=== PATIENT | female | born 1990 | race Caucasian/White ===

== ENCOUNTER 2017-12-07 11:38 | Emergency (ER) | payer OTHER ==
[2017-12-07] MEDS ORDERED: LIDOCAINE PATCH 5% TOP PRN (13:26)
--- NOTE | 2017-12-07 13:49 | ED Physician Documentation ---
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 hurts L > R worse with moving no numbness or weakness no fever not preg is breast feeding Review of Systems Constitutional: denies: Fever, Chills Cardiac: denies: Chest pain / pressure GI: denies: Abdominal Pain : denies: Incontinent, Now EGA Musculoskeletal: reports: Back pain Neurologic: denies: Focal weakness, Numbness Immunocompromised: denies: Immunocompromised PD PAST MEDICAL HISTORY - Past Medical History Past Medical History: No - Past Surgical History Past Surgical History: Yes Ortho: Other - Present Medications Home Medications: Ambulatory Orders Medication Instructions Recorded Confirmed Bcp 12/07/17 Ibuprofen [Motrin] 400 mg PO Q6H PRN #30 tablet 12/07/17 Lidocaine Patch 5% [Lidoderm Patch] 1 each TOP DAILY PRN #10 patch 12/07/17 - Allergies Allergies/Adverse Reactions: Allergies Allergy/AdvReac Type Severity Reaction Status Date / Time No Known Drug Allergies Allergy Verified 12/07/17 11:52 - Social History Does the pt smoke?: No Smoking Status: Never smoker Does the pt have substance abuse?: No PD ED PE NORMAL - Vitals Vital signs reviewed: Yes - HEENT HEENT: Atraumatic - Neck Neck: Supple, no meningeal sign, Other (left low muscular tTP) - Cardiac Cardiac: RRR - Respiratory Respiratory: No respiratory distress, Clear bilaterally - Abdomen Abdomen: Soft, Non tender - Back Back: No spinal TTP, Other (thoracic soft tissue TTP and some limited ROM, no rendess warmth swelling) - Derm Derm: Normal color - Extremities Extremities: Normal ROM s pain - Neuro Neuro: Alert and oriented X 3, Other (hip flex knee ext foot dorsi plantar and great to ext 5/5, patellar DTR 2+/4 maxwell, no clonus, nl sens and motor to arms as well) Eye Opening: Spontaneous Motor: Obeys Commands Verbal: Oriented GCS Score: 15 Results - Vitals Vitals: Vital Signs - 24 hr 12/07/17 11:51 Temperature 36.9 C Heart Rate 79 Respiratory 18 Rate Blood Pressure 147/88 H O2 Saturation 99 Oxygen O2 Source Room air PD MEDICAL DECISION MAKING - Sepsis Event Vital Signs: Vital Signs - 24 hr 12/07/17 11:51 Temperature 36.9 C Heart Rate 79 Respiratory 18 Rate Blood Pressure 147/88 H O2 Saturation 99 Oxygen O2 Source Room air Departure - Departure Disposition: 01 Home, Self Care Clinical Impression: Acute thoracic myofascial strain Qualifiers: Encounter type: initial encounter Qualified Code(s): S29.019A - Strain of muscle and tendon of unspecified wall of thorax, initial encounter Condition: Good Instructions: ED Sprain Thoracic Spine Follow-Up: MAURICE Bartonramirez Velez [Provider Group] Prescriptions: Ibuprofen [Motrin] 400 mg PO Q6H PRN #30 tablet PRN Reason: Pain Lidocaine Patch 5% [Lidoderm Patch] 1 each TOP DAILY PRN #10 patch PRN Reason: Pain Forms: Activity restrictions
[2017-12-07] MEDS: IBUPROFEN 400 MG TABLET PO STA ×2 (14:06→14:10)
[2017-12-07 14:59] VITALS: BP 133/79
== END 2017-12-07 14:10 | disposition home or self-care (01) ==
LOC: ED 11:38
DX: S29.019A Strain of muscle and tendon of unspecified wall of thorax, initial encounter (principal); X50.0XXA Overexertion from strenuous movement or load, initial encounter; Y93.F9 Activity, other caregiving; Y92.129 Unspecified place in nursing home as the place of occurrence of the external cause; Y99.0 Civilian activity done for income or pay
CPT/HCPCS: 99283; A9270

== ENCOUNTER 2018-03-12 19:33 | Observation (INO) | payer OTHER ==
[2018-03-12] MEDS ORDERED: oxyCODONE 5 MG TABLET PO STA (19:59)
--- NOTE | 2018-03-12 20:30 | ED Physician Documentation ---
PD HPI FEMALE - Stated complaint Stated Complaint: 6 WKS/CRAMPS/NAUS - Chief complaint Chief Complaint: Abd Pain - History obtained from History obtained from: Patient, Family - History of Present Illness Timing - onset: Today Timing - duration: Days Timing - details: Gradual onset Pain level max: 7 Pain level max: 7 Associated symptoms: Other (lower abd pain) Contributing factors: OB-HEAD OF PRECISION TARGETING History: G (2), P (1) - Additional information Additional information: states spotting over the past few days, today severe lower abd pain Review of Systems Ten Systems: 10 systems reviewed and negative Constitutional: denies: Fever, Chills Ears: denies: Ear pain Nose: denies: Rhinorrhea / runny nose, Congestion Throat: denies: Sore throat Cardiac: denies: Chest pain / pressure Respiratory: denies: Cough GI: denies: Nausea, Vomiting, Diarrhea Skin: denies: Rash Musculoskeletal: denies: Neck pain, Back pain Neurologic: denies: Headache PD PAST MEDICAL HISTORY - Past Medical History Past Medical History: No - Past Surgical History Past Surgical History: Yes Ortho: Other - Present Medications Home Medications: Ambulatory Orders Medication Instructions Recorded Confirmed Bcp 12/07/17 Ibuprofen [Motrin] 400 mg PO Q6H PRN #30 tablet 12/07/17 Lidocaine Patch 5% [Lidoderm Patch] 1 each TOP DAILY PRN #10 patch 12/07/17 - Allergies Allergies/Adverse Reactions: Allergies Allergy/AdvReac Type Severity Reaction Status Date / Time No Known Drug Allergies Allergy Verified 03/12/18 19:43 - Living Situation Living Situation: reports: With family Living Arrangement: reports: At home - Social History Does the pt smoke?: No Smoking Status: Never smoker Does the pt have substance abuse?: No PD ED PE NORMAL - Vitals Vital signs reviewed: Yes - General General: Alert and oriented X 3, Other (appears in pain, hunched over coming into the ER.) - HEENT HEENT: Moist mucous membranes - Neck Neck: Supple, no meningeal sign - Cardiac Cardiac: RRR - Respiratory Respiratory: No respiratory distress, Clear bilaterally - Abdomen Abdomen: Soft, Other (TTP suprapubic, + rebound and guarding. ) - Back Back: No CVA TTP, No spinal TTP - Derm Derm: Warm and dry - Extremities Extremities: No edema - Neuro Neuro: Alert and oriented X 3 Results - Vitals Vitals: Vital Signs - 24 hr 03/12/18 19:41 Temperature 36.5 C Heart Rate 87 Respiratory 18 Rate Blood Pressure 138/92 H O2 Saturation 100 Oxygen O2 Source Room air - Rads (name of study) OB US Radiology: Prelim report reviewed, EMP read contemporaneously, See rad report (No intrauterine gestational sac seen. Recommend continued clinical and laboratory monitoring. Recommend low threshold for re-imaging given the on visualization of the gestational sac and the amount of fluid in the pelvis. 2. No concerning adnexal lesions. 2.3 cm anechoic right ovarian cyst. Moderate amount of free fluid in the cul-de-sac. 3. No abnormality explaining the patient's symptoms. ) PD MEDICAL DECISION MAKING - ED course Complexity details: reviewed results, re-evaluated patient, considered differential, d/w patient, d/w family, d/w senior sales consultant ED course: Patient is a 28-year-old female who is approximately 6-7 weeks she believes. HCG is 2521. There is no IUP or gestational sac on ultrasound. Patient is significantly tender with peritoneal signs. Therefore I consulted Dr. Kelly, OB who will come and evaluate the patient for potential ectopic . Pain was well controlled with a single dose of oxycodone. Dr. Kelly will place the patient in observation tonight for serial exams. This document was made in part using voice recognition software. While efforts are made to proofread this document, sound alike and grammatical errors may occur. - Sepsis Event Vital Signs: Vital Signs - 24 hr 03/12/18 19:41 Temperature 36.5 C Heart Rate 87 Respiratory 18 Rate Blood Pressure 138/92 H O2 Saturation 100 Oxygen O2 Source Room air Departure - Departure Disposition: ED Place in Observation Clinical Impression: Abdominal pain affecting , Free fluid in pelvis Condition: Stable
[2018-03-12 20:37] LABS: BASOPHILS % (AUTO) 0.4 %; EOSINOPHILS % (AUTO) 0.4 %; LYMPHOCYTES # (AUTO) 1.9 10^3/uL (1.5-3.5); MEAN CORPUSCULAR HEMOGLOBIN 31.1 pg (27.0-31.0); MEAN CORPUSCULAR HGB CONC 34.9 g/dL (32.0-36.0); MEAN CORPUSCULAR VOLUME 89.2 fL (81.0-99.0); MEAN PLATELET VOLUME 9.6 fL (7.9-10.8); MONOCYTES # (AUTO) 0.4 10^3/uL (0.0-1.0); NEUTROPHILS # (AUTO) 7.2 10^3/uL (1.5-6.6); NEUTROPHILS % (AUTO) 75.2 %; PLT - PLATELET COUNT 222 10^3/uL (130-450); RED BLOOD COUNT 4.17 10^6/uL (4.20-5.40); RED CELL DISTRIBUTION WIDTH 12.4 % (12.0-15.0); WHITE BLOOD COUNT 9.5 x10^3/uL (4.8-10.8)
[2018-03-12 20:49] LABS: ALBUMIN 4.1 g/dL (3.2-5.5); ALBUMIN/GLOBULIN RATIO 1.5 (1.0-2.2); BILIRUBIN,TOTAL 0.5 mg/dL (0.2-1.0); CALCIUM 8.9 mg/dL (8.5-10.3); CREATININE 0.6 mg/dL (0.4-1.0); TOTAL PROTEIN 6.9 g/dL (6.7-8.2)
[2018-03-12 21:22] LABS: BILIRUBIN,URINE NEGATIVE (NEGATIVE); GLUCOSE, URINE (UA) NEGATIVE (NEGATIVE); KETONES,URINE (UA) NEGATIVE (NEGATIVE); LEUKOCYTE ESTERASE, URINE NEGATIVE (NEGATIVE); NITRITE,URINE NEGATIVE (NEGATIVE); OCCULT BLOOD,URINE NEGATIVE (NEGATIVE); PROTEIN,URINE NEGATIVE (NEGATIVE); UROBILINOGEN,URINE 0.2 (NORMAL) E.U./dL (NORMAL)
[2018-03-12 21:23] LABS: CLARITY,URINE CLEAR (CLEAR)
--- NOTE | 2018-03-12 21:23 | Ultrasound Report ---
Reason: 7 weeks preg, cramp, vag bleed. Procedure Date: 03/12/2018 Accession Number: [id number] / [id number] Procedure: US - OB First Trimester CPT Code: FULL RESULT: EXAM: FIRST TRIMESTER OBSTETRIC ULTRASOUND (Less than 11 weeks) EXAM DATE: 03/12/2018 CLINICAL HISTORY: 7 weeks preg, cramp, vag bleed. LMP: 01/28/2018. COMPARISONS: None. TECHNIQUE: Transabdominal and transvaginal ultrasound examination with static image documentation. CLINICAL DATES: EGA 6 weeks 1 day with SIGIFREDO 11/04/2018 based on LMP. ASSESSMENT: Gestational Sac: No intrauterine gestational sac seen. Embryo: none. Cardiac activity: none. Yolk sac: none. Amniotic fluid: Not applicable. Early placenta: Not applicable. Other: None. MATERNAL STRUCTURES: Uterus: Retroverted and retroflexed. Unremarkable. Endometrium: 19 mm. No intrauterine gestational sac or mass. Cervix: Closed. Right Ovary/Adnexa: 2.3 cm anechoic right ovarian cyst. The ovary measures 3.9 x 2.8 x 3.1 cm, volume 17.6 cc. Left Ovary/Adnexa: Unremarkable. The ovary measures 2.9 x 1.4 x 1.6 cm, volume 3.4 cc. Free Fluid: Free fluid noted in the cul-de-sac. Other: None. IMPRESSION: 1. No intrauterine gestational sac seen. Recommend continued clinical and laboratory monitoring. Recommend low threshold for re-imaging given the on visualization of the gestational sac and the amount of fluid in the pelvis. 2. No concerning adnexal lesions. 2.3 cm anechoic right ovarian cyst. Moderate amount of free fluid in the cul-de-sac. 3. No abnormality explaining the patient's symptoms. RADIA
[2018-03-12] MEDS ORDERED: SODIUM CHLORIDE FLUSH 0.9% 10 ML SYRINGE IVP PRN (22:44)
[2018-03-12] MEDS ORDERED: ACETAMINOPHEN 500 MG TABLET PO PRN (22:47)
[2018-03-12] MEDS ORDERED: oxyCODONE 5 MG TABLET PO PRN (22:47)
--- NOTE | 2018-03-12 23:06 | HISTORY & PHYSICAL EXAMINATION ---
History of Present Illness - History of Present Illness HPI Comment/Other: CC: pain HPI: Was trying to get and got in the first month of trying. Is . LMP 01/28/18. Had been feeling well until 2d ago had some mild cramping midline. Last hs had a flare in pain and rested and was able to go to bed. When she woke her pain was gone. Then today things were good until 16:30 when she had an abrupt onset of horrible pain that increased in intensity over the next 30min. At that point they decided to go to the ER. Pain is over the suprapubic region, same intensity bilaterally, feels both crampy and sharp. Does not feel like she has a UTI or GI infection. No fevers. Did have some very light spotting over the past 2d and a sensation of pelvic floor pressure. PMH: neg PSH: bunionectomy, no anesthesia problems Meds: PNV, tylenol PRN Allergies: NKDA SH: no t/e/d. [place]. OB: . P1 complicated by elevated BPs during and during labor. IOL for oligohydramnios. Otherwise normal. G2=current. SERVICE DESK LEAD: hx of chlamydia 2009 FH: no anesthesia complications O: AVSS alert, comfortable, NAD Abd soft with moderate tenderness bilat suprapubic area. Mild rebound lower abdomen but none upper. Not distended. No guarding. No mass. HCG 2500. Unremarkable CBC and CMP. Rh+ US images reviewed: thick endometrium without GS. Simple ov cyst. FF small amount but appears to be complex c/w clot. Doppler flow to both ovaries seen. A/P: 28yo at 6w1d by certain LMP, Rh+, with abdominal pain and of unknown location. No identified on US though uterine lining is thick c/w evolving IUP vs. ectopic. HCG is high enough that would generally be seen on US but not reliably. is desired by pt. Discussed the location and well being is currently unknown. Could be normal IUP, evolving SAB, or evolving ectopic. Reviewed option of tx with methotrexate that would dissolve a regardless of location. They decline this and want to preserve this if able. Discussed what an e ctopic course can look like from spontaneous resolution to life-threatening hemorrhage from rupture. Currently she likely has a small intraperitoneal bleed considering her rebound and small amount of clot seen in the pelvis. However her pain is gone at rest after taking 5mg oxycodone, her VS are stable, her exam is not floridly abnormal, and she does not have a large amount of FF--so I don't feel like she needs emergent surgery now. The small amount of blood could be from a ruptured theca luteal cyst. Discussed that an option (due to her stability) is obs overnight to watch VS and pain. ER MD will do another exam as well. She would like to do this. Advised to notify RN PRN change or increase in pain. Recheck HCG in am. If decreasing and pt is stable then will recommend MTX. If increasing and pt is stable then can consider discharge home with ongoing close follow up. History - Past Medical History Cardiovascular: reports: None Respiratory: reports: None Neuro: reports: None Endocrine/Autoimmune: reports: None GI: reports: Hemorrhoids SERVICE DESK LEAD: reports: None : reports: None HEENT: reports: Other Psych: reports: None Musculoskeletal: reports: None Derm: reports: None MRSA Hx?: No Other Past Medical History: chronic dry eyes - Past Surgical History Ortho: reports: Other - Family & Social History Living arrangement: At home Living Situation: With family - POLST Patient has POLST: No Meds/Allgy - Home Medications Home Medications: Ambulatory Orders Medication Instructions Recorded Confirmed Bcp 12/07/17 Ibuprofen [Motrin] 400 mg PO Q6H PRN #30 tablet 12/07/17 Lidocaine Patch 5% [Lidoderm Patch] 1 each TOP DAILY PRN #10 patch 12/07/17 - Allergies Allergies/Adverse Reactions: Allergies Allergy/AdvReac Type Severity Reaction Status Date / Time No Known Drug Allergies Allergy Verified 03/12/18 19:43 Exam - Vital Signs Vital Signs: Vital Signs x48h Temp Pulse Resp BP Pulse Ox 03/12/18 21:51 99.0 F 83 16 112/74 98 03/12/18 19:41 97.7 F 87 18 138/92 H 100 Conclusion/Plan - Lab Results Fish Bones: 03/12/18 20:15 03/12/18 20:15
[2018-03-13] MEDS: SODIUM CHLORIDE FLUSH 0.9% 10 ML SYRINGE IVP SCH ×2 (00:57→08:49)
[2018-03-13] MEDS ORDERED: ONDANSETRON 4 MG/2 ML VIAL IVP PRN (04:50)
[2018-03-13 06:12] LABS: HGB - HEMOGLOBIN 12.9 g/dL (12.0-16.0); MEAN CORPUSCULAR HEMOGLOBIN 30.8 pg (27.0-31.0); MEAN CORPUSCULAR HGB CONC 34.2 g/dL (32.0-36.0); MEAN CORPUSCULAR VOLUME 90.1 fL (81.0-99.0); MEAN PLATELET VOLUME 9.7 fL (7.9-10.8); RED BLOOD COUNT 4.18 10^6/uL (4.20-5.40); RED CELL DISTRIBUTION WIDTH 12.5 % (12.0-15.0); WHITE BLOOD COUNT 8.7 x10^3/uL (4.8-10.8)
--- NOTE | 2018-03-13 08:51 | Discharge Plan ---
Discharge Plan Disposition: Home, Self Care Condition: Good Diet: Regular Activity Restrictions: No Restrictions Shower Restrictions: No Driving Restrictions: No Additional Instructions or Follow Up instructions: 1. Go to the ER immediatly if you have severe abdominal pain 2. Get your blood draw at 8pm tomorrow 03/14 3. Call your doctor's office on Thursday morning to schedule a follow up visi t--your doc will tell you when he wants to see you. 4. Continue your vitamins 5. For nausea you can try lemon, mint, or basia. OK to do over the counter unasom /4 to 1 pill twice daily as needed--watch sleepiness when you are first using (no driving or single parenting until you know how it makes you feel). 6. No sex until OK'ed by your doc No Smoking: If you smoke, Please STOP! Call for help. Follow-up with: Aaron Albert MD [Primary Care Provider] - Erasmo Ventura MD [Physician No Access] -
[2018-03-13 11:27] VITALS: BP 109/63
--- NOTE | 2018-03-14 01:34 | DISCHARGE SUMMARY ---
Physician: Radha Kelly MD DATE OF ADMISSION: 03/12/2018 DATE OF DISCHARGE: 03/13/2018 ADMISSION DIAGNOSES 1. of unknown location. 2. Threatened . 3. Abdominal pain in . DISCHARGE DIAGNOSES 1. of unknown location. 2. Threatened . 3. Abdominal pain in . STUDIES: Ultrasound on 03/12/2018. HOSPITAL COURSE: The patient is a 28-year-old G2, P1-0-0-1, with a last menstrual period of 01/29/20 18. She had been trying to get and is on vitamins. She had an abrupt onset of abd ominal pain 2 days ago that was moderate and resolved on its own. Then again, the day of admission s he had an abrupt onset of severe pain that worsened over time. She went to the ER for evaluation. T here, she had an ultrasound that showed no gestational sac or embryonic pole. She did have a thick u terine lining of 19 mm. Her right ovary had a 2.3 cm anechoic cyst. The left ovary was normal. The re was Doppler flow to both ovaries. Radiology reported free fluid noted in the cul-de-sac. On my r ead, I did see some clot present. The patient is Rh positive. Initial beta hCG was 2521. This incr eased 9 hours later to 2792. Overnight, she had been admitted for observation, and her pain complete ly resolved. The only narcotic she had taken was 5 mg of oxycodone in the ER. This was 8 hours prio r to discharge. Overnight, her vital signs were stable, and she had no further vaginal bleeding. DISCHARGE EXAMINATION: She is afebrile with normal vital signs, alert and smiling, in no apparent di stress. Abdomen is soft, nontender, nondistended. DISCHARGE INSTRUCTIONS: Detailed teaching and instructions were given to the patient. DISCHARGE EDUCATION: The patient has been counseled multiple times and is aware that her i s currently of unknown location. This could mean that it is a normal early intrauterine , a failing intrauterine , or an ectopic that could be growing or failing. The [facility] e of growth in either location is increased, as her beta hCG has increased as well. She is aware xuan t currently she has no signs concerning for an actively problematic ectopic . She is aware that these can be life threatening and that she should present to the emergency room immediately p.r. n. significant returning pain. She is also aware that at this point I think that her pain could be d ue to a ruptured ovarian cyst and that hopefully her pain will resolve over the next 2 days. It migh t flare intermittently but should not be more than mild. She will return for a repeat hCG 48 hours f ollowing her first draw. This will be on Thursday night. Thursday, I will call her physician, Amelia Ventura, and let him know what those results were. She is aware that she needs to follow up with him for ongoing care and that I will not be available to see her. Recommended pelvic rest unti l told otherwise by her physician. FOLLOWUP: Patient is to call her doctor's office, Dr. Ventura, Thursday for obtaining a follo wup with him. Timing on that followup will depend on her Thursday evening hCG results. DISCHARGE DISPOSITION: Home. CONDITION: Good. MEDICATIONS: Continue vitamins. TD: 03/13/2018 09:44
== END 2018-03-13 11:30 | disposition home or self-care (01) ==
LOC: ED 19:33 → MS2 22:44
PROVIDERS: ADMIT Obstetrics & Gynecology; ATTEND Obstetrics & Gynecology
DX: O20.0 Threatened abortion (principal); O34.81 Maternal care for other abnormalities of pelvic organs, first trimester; N83.201 Unspecified ovarian cyst, right side; Z3A.01 Less than 8 weeks gestation of pregnancy
CPT/HCPCS: 36415; 76801; 76817; 80053; 81003; 83690; 84144; 84702; 85025; 85027; 86900; 86901; 99284; 99285; A9270; G0378; 81001; 87086

== ENCOUNTER 2018-03-14 11:31 | Emergency (ER) | payer OTHER ==
--- NOTE | 2018-03-14 12:10 | ED Physician Documentation ---
PD HPI FEMALE - Stated complaint Stated Complaint: 6WK PREG/ABD CRAMPING - Chief complaint Chief Complaint: Abd Pain - History obtained from History obtained from: Patient, Family - History of Present Illness Timing - onset: Other (This is a at about 6 weeks gestation with an LMP of January 28. She was admitted overnight recently for concern for ectopic. Her beta-hCG overnight went up and she had an ultrasound showing what appeared to be a nonpathologic right ovarian cyst. Today the cramping was heavier although it is better now with spotting director radiation oncology than her normal menses.) Review of Systems Constitutional: reports: Reviewed and negative Ears: reports: Reviewed and negative Throat: reports: Reviewed and negative PD PAST MEDICAL HISTORY - Past Medical History Cardiovascular: None Respiratory: None Neuro: None Endocrine/Autoimmune: None GI: Hemorrhoids COMPUTER LAB AIDE: None : None HEENT: Other Psych: None Musculoskeletal: None Derm: None - Past Surgical History Past Surgical History: Yes Ortho: Other - Present Medications Home Medications: Ambulatory Orders Medication Instructions Recorded Confirmed Acetaminophen [Tylenol Extra 03/14/18 Strength] Vitamin [Trinatal Rx 1] 03/14/18 - Allergies Allergies/Adverse Reactions: Allergies Allergy/AdvReac Type Severity Reaction Status Date / Time No Known Drug Allergies Allergy Verified 03/14/18 11:40 - Social History Does the pt smoke?: No Smoking Status: Never smoker Does the pt drink ETOH?: No Does the pt have substance abuse?: No - Immunizations Immunizations are current?: Yes - POLST Patient has POLST: No PD ED PE NORMAL - Vitals Vital signs reviewed: Yes - General General: Alert and oriented X 3, No acute distress - Abdomen Abdomen: Normal bowel sounds, Soft, Non tender - Female Female : Deferred - Extremities Extremities: No edema, No calf tenderness / cord Results - Vitals Vitals: Vital Signs - 24 hr 03/14/18 11:36 Temperature 36.1 C L Heart Rate 73 Respiratory 16 Rate Blood Pressure 138/101 H O2 Saturation 100 Oxygen O2 Source Room air PD MEDICAL DECISION MAKING - ED course ED course: 28-year-old with Persistent pelvic cramping and light bleeding in the setting of early . Recent workup as noted. Beta-hCG now dropping, was 2521 in the hospital, then 2792, now 2261. Case discussed by phone with Dr. Kelly, on- call OB who feels this is a failed and still possibly an ectopic and recommended methotrexate. Dose was confirmed with her. This was discussed at length with the patient who also consulted by phone with her personal OB who agreed with that plan. We discussed the need to not breast- feed for 60 hours after the injection. - Sepsis Event Vital Signs: Vital Signs - 24 hr 03/14/18 11:36 Temperature 36.1 C L Heart Rate 73 Respiratory 16 Rate Blood Pressure 138/101 H O2 Saturation 100 Oxygen O2 Source Room air Departure - Departure Disposition: 01 Home, Self Care Clinical Impression: Abdominal pain affecting Condition: Good Record reviewed to determine appropriate education?: Yes Instructions: ED Abdominal Pain Rule Out Ectopic Comments: Tylenol or ibuprofen as needed for the cramping. Call your OB tomorrow, again you will need repeat beta hCG testing late in the week. Return for worsening symptoms.
[2018-03-14] MEDS ORDERED: KETOROLAC 60 MG/2 ML VIAL IM STA (13:26)
[2018-03-14] MEDS ORDERED: METHOTREXATE 50 MG/2 ML MDV IM STA ×2 (13:33→14:18)
[2018-03-14 14:57] VITALS: BP 127/72
== END 2018-03-14 14:57 | disposition home or self-care (01) ==
LOC: ED 11:31
DX: O99.89 Other specified diseases and conditions complicating pregnancy, childbirth and the puerperium (principal); R10.9 Unspecified abdominal pain; O26.851 Spotting complicating pregnancy, first trimester; O02.81 Inappropriate change in quantitative human chorionic gonadotropin (hCG) in early pregnancy; Z3A.01 Less than 8 weeks gestation of pregnancy
CPT/HCPCS: 36415; 84702; 85014; 85018; 96372; 99283; J9250